=== PATIENT | male | born 1990 | race Caucasian/White ===

== ENCOUNTER 2022-10-19 17:43 | Emergency (ER) | payer SELFPAY ==
[~2022-10-19] VITALS: Ht 190.5 cm; Wt 86.1 kg
[~2022-10-19 17:43] MED LIST: HYDR-229 PO; TRAM50TA2 PO
--- NOTE | 2022-10-19 18:14 | ED GI ---
General Chief Complaint: - Reproductive Stated Complaint: ABD PAIN Source of Information: Patient Exam Limitations: No Limitations History of Present Illness Date Seen by Provider: Oct 19, 2022 Time Seen by Provider: 18:02 Initial Comments 32-year-old male presents to the ED with reports of abdominal pain. States he has had a left inguinal hernia for the last 15 years, but states over the last week it has been causing pain when standing. States over the last month it is gotten much larger. Reports that when he lays down the hernia completely reduces, and he is able to push it in. States he also has right lower quadrant pain when standing. Denies fevers, nausea, vomiting. States he had a large loose bowel movement last night. Denies any past medical history, does not take any medications. Allergies and Home Medications Allergies Coded Allergies: No Known Drug Allergies (Unverified , 01/02/12) Patient Home Medication List Home Medication List Reviewed: Yes Review of Systems Review of Systems Constitutional: see HPI Past Jyckycs-Ghxzdx-Zvlgba Hx Patient Social History Tobacco Use?: Yes Substance use?: No Alcohol Use?: No Immunizations Up To Date Influenza Vaccine Up-to-Date: No; Not Current First/Initial COVID19 Vaccinat: none Second COVID19 Vaccination Michael: none Past Medical History Orthopedic Reproductive Disorders: No Sexually Transmitted Disease: No Physical Exam Vital Signs Vital Signs - First Documented 10/19/22 17:50 Temp 35.8 Pulse 67 B/P (MAP) 135/85 (102) Pulse Ox 97 O2 Delivery Room Air Capillary Refill : Height/Weight/BMI Height: 6'2" Weight: 180lbs. oz. 81.220086lf; 22.47 BMI Method:Stated General Appearance: WD/WN, no apparent distress Neck: supple, normal inspection Respiratory: lungs clear, normal breath sounds, no respiratory distress, no accessory muscle use Cardiovascular: regular rate, rhythm, no edema, no gallop, no JVD, no murmur Gastrointestinal: normal bowel sounds, soft, no organomegaly, no pulsatile mass, tenderness (Mild right lower quadrant), hernia (Large left inguinal hernia) Extremities: normal range of motion, normal inspection Back: normal inspection Male: normal genitalia Neurologic/Psychiatric: alert, normal mood/affect Skin: normal color, warm/dry Progress/Results/Core Measures Results/Orders Lab Results Laboratory Tests Test 10/19/22 17:58 3/14/23 18:39 Range/Units White Blood Count 6.4 4.3-11.0 10^3/uL Red Blood Count 5.63 H 4.30-5.52 10^6/uL Hemoglobin 16.6 13.3-17.7 g/dL Hematocrit 49 40-54 % Mean Corpuscular Volume 87 80-99 fL Mean Corpuscular Hemoglobin 30 25-34 pg Mean Corpuscular Hemoglobin Concent 34 32-36 g/dL Red Cell Distribution Width 13.1 10.0-14.5 % Platelet Count 264 130-400 10^3/uL Mean Platelet Volume 10.9 9.0-12.2 fL Immature Granulocyte % (Auto) 0 % Neutrophils (%) (Auto) 50 42-75 % Lymphocytes (%) (Auto) 35 12-44 % Monocytes (%) (Auto) 7 0-12 % Eosinophils (%) (Auto) 6 0-10 % Basophils (%) (Auto) 2 0-10 % Neutrophils # (Auto) 3.2 1.8-7.8 10^3/uL Lymphocytes # (Auto) 2.2 1.0-4.0 10^3/uL Monocytes # (Auto) 0.5 0.0-1.0 10^3/uL Eosinophils # (Auto) 0.4 H 0.0-0.3 10^3/uL Basophils # (Auto) 0.1 0.0-0.1 10^3/uL Immature Granulocyte # (Auto) 0.0 0.0-0.1 10^3/uL Sodium Level 141 135-145 MMOL/L Potassium Level 3.6 3.6-5.0 MMOL/L Chloride Level 107 98-107 MMOL/L Carbon Dioxide Level 23 21-32 MMOL/L Anion Gap 11 5-14 MMOL/L Blood Urea Nitrogen 11 7-18 MG/DL Creatinine 0.82 0.60-1.30 MG/DL Estimat Glomerular Filtration Rate 118 BUN/Creatinine Ratio 13 Glucose Level 82 70-105 MG/DL Calcium Level 9.0 8.5-10.1 MG/DL Corrected Calcium 8.8 8.5-10.1 MG/DL Total Bilirubin 0.3 0.1-1.0 MG/DL Aspartate Amino Transf (AST/SGOT) 16 5-34 U/L Alanine Aminotransferase (ALT/SGPT) 11 0-55 U/L Alkaline Phosphatase 87 40-136 U/L Total Protein 7.2 6.4-8.2 GM/DL Albumin 4.3 3.2-4.5 GM/DL Amylase Level 85 25-125 U/L Lipase 50 8-78 U/L Urine Color DARK YELLOW Urine Clarity SL CLOUDY Urine pH 6.0 5-9 Urine Specific [place] >=1.030 1.016-1.022 Urine Protein TRACE H NEGATIVE Urine Glucose (UA) NEGATIVE NEGATIVE Urine Ketones NEGATIVE NEGATIVE Urine Nitrite NEGATIVE NEGATIVE Urine Bilirubin NEGATIVE NEGATIVE Urine Urobilinogen 1.0 < = 1.0 MG/DL Urine Leukocyte Esterase NEGATIVE NEGATIVE Urine RBC (Auto) NEGATIVE NEGATIVE Urine RBC 5-10 H /HPF Urine WBC RARE /HPF Urine Squamous Epithelial Cells RARE /HPF Urine Crystals NONE /LPF Urine Bacteria TRACE /HPF Urine Casts NONE /LPF Urine Mucus LARGE H /LPF Urine Culture Indicated NO My Orders Orders - FRANCIS RICK APRN Comprehensive Metabolic Panel (10/19/22 18:09) Lipase (10/19/22 18:09) Amylase (10/19/22 18:09) Ua Culture If Indicated (10/19/22 18:09) Cbc With Automated Diff (10/19/22 18:09) Ct Abdomen/Pelvis W (10/19/22 18:09) Iohexol Injection (Omnipaque 350 Mg/Ml 1 (10/19/22 18:45) Received Contrast (Hold Metformin- Contr (10/19/22 18:45) Ns (Ivpb) (Sodium Chloride 0.9% Ivpb Bag (10/19/22 18:45) Medications Given in ED Current Medications Medications Dose Ordered Sig/Merari Route Start Time Stop Time Status Last Admin Dose Admin Iohexol 100 ml ONCE ONCE IV 10/19/22 18:45 10/19/22 18:46 DC 10/19/22 19:13 80 ML Sodium Chloride 100 ml ONCE ONCE IV 10/19/22 18:45 10/19/22 18:46 DC 10/19/22 19:13 80 ML Vital Signs/I&O 10/19/22 10/19/22 17:50 20:05 Temp 35.8 Pulse 67 54 B/P (MAP) 135/85 (102) 115/83 Pulse Ox 97 98 O2 Delivery Room Air Room Air Progress Progress Note #1: Time: 18:14 Progress Note Patient seen and evaluated, resting comfortably in bed, no acute distress. B ased on exam and symptoms, concern for strangulated hernia, appendicitis, bowel obstruction, diverticulitis, UTI, nephrolithiasis. Work-up initiated including CBC, CMP, amylase, lipase, CT abdomen pelvis. Patient declining anything for pain at this time. Progress Note #2: Time: 19:48 Progress Note Labs reviewed. CBC mostly normal, WBC normal 6.4, RBCs elevated 5.63. CMP grossly normal, potassium 3.6, BUN 11, creatinine 0.82, GFR 118. Amylase normal 85, lipase normal 50. UA positive for 5-10 RBC, trace protein, negative nitrate, negative leukocytes, rare WBC, trace bacteria. CT reviewed. Inflammatory changes in right abdomen with dilated fluid-filled small bowel loops with a focal transition present concerning for small bowel obstruction. No free air or abscess formation is identified. Will call Dr. Rolon regarding CT results. Diagnostic Imaging Diagonstic Imaging: CT Plain Films/CT/US/NM/MRI: abdomen, pelvis Comments [facility], [place] NAME: ADRIANNA DE LEON [facility] REC#: [id number] PT STATUS: REG ER : 1990 PHYSICIAN: FRANCIS RICK APRN ADMIT DATE: 10/19/22/ER Draft Date of Exam:10/19/22 CT ABDOMEN/PELVIS W PROCEDURE: CT abdomen and pelvis with contrast. TECHNIQUE: Multiple contiguous axial images were obtained through the abdomen and pelvis after administration of intravenous contrast. Auto Exposure Controls were utilized during the CT exam to meet ALARA standards for radiation dose reduction. All CT scans use one or more of the following dose optimizing techniques: automated exposure control, MA and/or KvP adjustment based on patient size and exam type or iterative reconstruction. INDICATION: Abdominal and testicular pain. No prior studies are available for comparison. The lung bases are clear. The liver and gallbladder are unremarkable. There is no biliary duct dilatation. Pancreas and spleen are unremarkable. No adrenal mass is identified. Kidneys are unremarkable. There is no hydronephrosis. Aorta is nonaneurysmal. There are some dilated fluid-filled small bowel loops in the upper and mid abdomen. There appears to be a focal area of transition right para-midline abdomen. There is also moderate amount of inflammatory stranding in the mesentery in the right abdomen at this location. No free air is seen. There is no free fluid or fluid collection identified. Bladder is decompressed. Prostate is unremarkable. No definite recurrent hernia is identified apart from fat-containing left inguinal hernia. IMPRESSION: There are inflammatory changes in the right abdomen with dilated fluid-filled small bowel loops with a focal transition present concerning for small bowel obstruction. No free air or abscess formation is identified. Dictated on workstation # [id number] Dict: 10/19/221916 Trans: 10/19/221927 [facility] [id number] Interpreted by: ASHLI LOFTON MD Electronically signed by: Departure Communication (Admissions) Time/Spoke to Consulting Phy: 19:[address] Rolon, surgery, regarding CT result. He believes that this is just inflammation in the right lower quadrant, not a bowel obstruction. He would like to see the patient on in his office regarding his hernia. Impression Primary Impression: Inguinal hernia of left side without obstruction or gangrene Disposition: HOME, SELF-CARE Condition: Stable Departure-Patient Inst. Decision time for Depature: 19:57 Referrals: ALEX ROLON,LOCAL PHYSICIAN (PCP) Primary Care Physician Patient Instructions: Abdominal Hernia (DC) Add. Discharge Instructions: Follow-up with Dr. Rolon on . Call him tomorrow to schedule appointment. Return for uncontrollable pain, recurrent vomiting, if your hernia is unable to be reduced, or any other new, concerning, or worsening symptoms. All discharge instructions reviewed with patient and/or family. Voiced understanding. FRANCIS RICK APRN Oct 19, 2022 18:14
[2022-10-19 18:16] LABS: BASOPHILS # (AUTO) 0.1 10^3/uL (0.0-0.1); BASOPHILS % (AUTO) 2 % (0-10); EOSINOPHILS # (AUTO) 0.4 10^3/uL (0.0-0.3); EOSINOPHILS % (AUTO) 6 % (0-10); HEMATOCRIT 49 % (40-54); HEMOGLOBIN 16.6 g/dL (13.3-17.7); LYMPHOCYTES # (AUTO) 2.2 10^3/uL (1.0-4.0); LYMPHOCYTES % (AUTO) 35 % (12-44); MEAN CORPUSCULAR HEMOGLOBIN 30 pg (25-34); MEAN CORPUSCULAR HGB CONC 34 g/dL (32-36); MEAN CORPUSCULAR VOLUME 87 fL (80-99); MEAN PLATELET VOLUME 10.9 fL (9.0-12.2); MONOCYTES # (AUTO) 0.5 10^3/uL (0.0-1.0); MONOCYTES % (AUTO) 7 % (0-12); NEUTROPHILS # (AUTO) 3.2 10^3/uL (1.8-7.8); NEUTROPHILS % (AUTO) 50 % (42-75); PLATELET COUNT 264 10^3/uL (130-400); WHITE BLOOD COUNT 6.4 10^3/uL (4.3-11.0)
[2022-10-19 18:17] LABS: ALBUMIN 4.3 GM/DL (3.2-4.5)
[2022-10-19 18:18] LABS: POTASSIUM 3.6 MMOL/L (3.6-5.0)
[2022-10-19 18:20] LABS: TOTAL PROTEIN 7.2 GM/DL (6.4-8.2)
[2022-10-19 18:22] LABS: BILIRUBIN,TOTAL 0.3 MG/DL (0.1-1.0)
[2022-10-19 18:24] LABS: CREATININE SERUM 0.82 MG/DL (0.60-1.30)
[2022-10-19] MEDS ORDERED: NS 100 ML (IVPB) BAG IV ONE (18:45)
[2022-10-19] MEDS ORDERED: HOLD METFORMIN - RECEIVED CONTRAST 20 ML VIAL IV SCH (18:45)
[2022-10-19] MEDS ORDERED: IOHEXOL 350 MG/ML 100 ML (OMNIPAQUE 350) VIAL IV ONE (18:45)
[2022-10-19 18:48] LABS: BILIRUBIN,URINE NEGATIVE (NEGATIVE); CLARITY,URINE SL CLOUDY; COLOR,URINE DARK YELLOW; GLUCOSE, URINE (UA) NEGATIVE (NEGATIVE); KETONES,URINE NEGATIVE (NEGATIVE); LEUKOCYTE ESTERASE ,URINE NEGATIVE (NEGATIVE); NITRITE,URINE NEGATIVE (NEGATIVE); PROTEIN,URINE TRACE (NEGATIVE)
[2022-10-19 18:58] LABS: BACTERIA,URINE TRACE /HPF; SQUAMOUS EPITHELIAL CELL,UR RARE /HPF; WBC,URINE RARE /HPF
--- NOTE | 2022-10-19 19:29 | Diagnostic Imaging Report ---
PROCEDURE: CT abdomen and pelvis with contrast. TECHNIQUE: Multiple contiguous axial images were obtained through the abdomen and pelvis after administration of intravenous contrast. Auto Exposure Controls were utilized during the CT exam to meet ALARA standards for radiation dose reduction. All CT scans use one or more of the following dose optimizing techniques: automated exposure control, MA and/or KvP adjustment based on patient size and exam type or iterative reconstruction. INDICATION: Abdominal and testicular pain. No prior studies are available for comparison. The lung bases are clear. The liver and gallbladder are unremarkable. There is no biliary duct dilatation. Pancreas and spleen are unremarkable. No adrenal mass is identified. Kidneys are unremarkable. There is no hydronephrosis. Aorta is nonaneurysmal. There are some dilated fluid-filled small bowel loops in the upper and mid abdomen. There appears to be a focal area of transition right para-midline abdomen. There is also moderate amount of inflammatory stranding in the mesentery in the right abdomen at this location. No free air is seen. There is no free fluid or fluid collection identified. Bladder is decompressed. Prostate is unremarkable. No definite recurrent hernia is identified apart from fat-containing left inguinal hernia. IMPRESSION: There are inflammatory changes in the right abdomen with dilated fluid-filled small bowel loops with a focal transition present concerning for small bowel obstruction. No free air or abscess formation is identified. Dictated by: Dictated on workstation # [id number]
[2022-10-19 20:05] VITALS: BP 115/83
== END 2022-10-19 20:05 | disposition home or self-care (01) ==
LOC: EDUNIT# 17:43 → ER 17:44
DX: K40.90 Unilateral inguinal hernia, without obstruction or gangrene, not specified as recurrent (principal); Z28.310 Unvaccinated for COVID-19
CPT/HCPCS: 36415; 74177; 80053; 81000; 82150; 83690; 85025